=== PATIENT | female | born 1975 | race Caucasian/White ===

== ENCOUNTER 2023-07-01 06:25 | Day surgery (SDC) | payer BC ==
[~2023-07-01] VITALS: Ht 175.3 cm; Wt 127.0 kg
[2023-07-01 07:51] LABS: HCG,QUAL RESULT NEGATIVE (NEGATIVE)
[2023-07-01 08:14] VITALS: O2SAT 97
[2023-07-01] MEDS ORDERED: SIMETHICONE 40 MG/0.6 ML ML ONE (08:46)
[2023-07-01] MEDS ORDERED: MEPERIDINE 100 MG INJ. 100 MG/ML VIAL ONE (08:47)
[2023-07-01] MEDS ORDERED: MIDAZOLAM HCL 5 MG/5 ML VIAL ONE ×2 (08:47→08:59)
[2023-07-01] MEDS ORDERED: DIPHENHYDRAMINE INJ 50 MG/ML VIAL ONE (08:47)
[2023-07-01 13:03] VITALS: BP_SYST 129; PULSE 86; RESP 16
== END 2023-07-01 10:00 | disposition home or self-care (01) ==
LOC: SDS 06:25 → SMU 06:27 → SDS 10:00
PROVIDERS: ATTEND Internal Medicine
DX: Z12.11 Encounter for screening for malignant neoplasm of colon (principal); D12.4 Benign neoplasm of descending colon; K52.9 Noninfective gastroenteritis and colitis, unspecified; K57.30 Diverticulosis of large intestine without perforation or abscess without bleeding; K64.8 Other hemorrhoids; G43.909 Migraine, unspecified, not intractable, without status migrainosus; M19.90 Unspecified osteoarthritis, unspecified site; Z79.899 Other long term (current) drug therapy
CPT/HCPCS: 45380; 45385; 99152; 84703; 88305; G0378; J1200; J2250; J2175